=== PATIENT | male | born 1975 | race American Indian/Alaskan Native ===

== ENCOUNTER 2016-04-27 11:11 | Day surgery (SDC) | payer OTHER ==
--- NOTE | 2016-04-27 12:44 | Anesthesia Day of Surgery ---
Anesthesia Day of Surgery - Day of Surgery Patient Examined: Yes Patient H&P Reviewed: Yes Patient is NPO: Yes
--- NOTE | 2016-04-27 12:46 | Anesthesia Consultation ---
Anesthesia Consult and Med Hx Date of service: 04/27/16 - Airway Anesthetic Teeth Evaluation: Good ROM Head & Neck: Adequate Mental/Hyoid Distance: Adequate Mallampati Class: Class II Intubation Access Assessment: Probably Good - Pulmonary Exam CTA: Yes - Cardiac Exam Cardiac Exam: RRR - Pre-Operative Health Status ASA Pre-Surgery Classification: ASA2 Proposed Anesthetic Plan: MAC - Pre-Anesthesia Comment Pre-Anesthesia Comments: no surgery history - Pulmonary Hx Smoking: No Hx Asthma: No Hx Sleep Apnea: No - Cardiovascular System Hx Hypertension: No Hx Heart Attack/AMI: No - Central Nervous System Hx Seizures: No CVA: No Hx Psychiatric Problems: No - Gastrointestinal Hx Gastroesophageal Reflux Disease: No - Endocrine Hx Renal Disease: No Hx Liver Disease: No Hx Insulin Dependent Diabetes: No - Hematic Hx Sickle Cell Disease: No - Other Systems Hx Cancer: No - Additional Comments Anesthesia Medical History Comments: Pt denies any familial anesthesia complications
[2016-04-27] MEDS ORDERED: DIPRIVAN 10 MG/ML IV ONE ×3 (12:50)
[2016-04-27] MEDS ORDERED: NACL 0.9% 1000 ML 1,000 ML IV SCH (13:00)
[2016-04-27] MEDS ORDERED: XYLOCAINE MPF 2% ONE (13:00)
[2016-04-27 14:12] VITALS: BP 119/75
--- NOTE | 2016-04-27 14:59 | Operative Report ---
Operative Report Operative Report: Date of procedure: 04/27/2016 Procedure: Colonoscopy with hot biopsy polypectomy and ablation Attending physician: Liam Bailey MD Residue Furnace Operator: Liam Bailey MD Indication: Patient is a 40-year-old male who presented with a history of anorectal discomfort rectal bleeding altered bowel habits bloating and rectal pain. A colonoscopy is done to assess patient regarding the cause of his symptoms so that treatment may be directed based the findings. Consent: Informed consent was obtained after advising the patient and family regarding nature of this procedure, its indications, potential benefits as well as possible complications including but not limited to bleeding perforation and adverse reaction to medication, infection as well as other cardiopulmonary complications. An informed written and verbal consent was then obtained after due opportunity was provided for questions and answers. Monitoring: Patient was monitored continuously with pulse oximetry and electrocardiographic recordings as well as blood pressure recordings. Vital signs remained stable throughout this procedure with no untoward events. Preoperative assessment: Patient was assessed immediately prior to this procedure for capacity to tolerate monitored anesthesia care and moderate sedation as well as general anesthesia. Patient's ASA classification is 2, Mallampati class is 2, Hyomental distance is 3. Instrument: GoodDatan video colonoscope Medications: Propofol given intravenously in divided doses. For details please refer to anesthesia records. Description of procedure: Patient was placed in the left lateral decubitus position after achieving sedation, a digital rectal examination was performed following which the colonoscope was introduced into the anal verge and advanced to the cecum which was identified by the cecal valve, the appendiceal orifice, as well as by the cecal strap and direct transillumination. The colonoscope was subsequently withdrawn with careful inspection of all mucosal surfaces. Patient tolerated this procedure well and was subsequently taken to the recovery room. The following findings were noted. Findings: There was some thick liquid stool in sections of the colon which was irrigated. There was there were a few diverticula seen in the sigmoid colon. There was a diminutive flat polyp in the rectum which was ablated. There were 2 sessile polyps in the sigmoid colon one was about 3-4 mm the other one was about 5-6 mm. Would polyps were removed by hot biopsy polypectomy and retrieved. Patient had indurated erythematous internal hemorrhoids noted on the retroflex examination at the anal verge. These however did not appear to be significantly engorged. Hemorrhoidal band ligation was therefore not done. Impression: Diminutive sigmoid colon polyp status post hot biopsy polypectomy Diminutive rectal polyp status post ablation Inflamed internal hemorrhoids. Plan: Follow pathology report High-fiber diet Daily sitz baths Anusol HC suppositories per rectum daily at bedtime 5% lidocaine ointment rectum every 3-6 hours as needed Patient will be followed up as an outpatient.
--- NOTE | 2016-04-27 15:00 | Discharge Summary ---
Short Stay Discharge Plan Activity: advance as tolerated Weight Bearing Status: Weight Bear as Tolerated Diet: regular Additional Instructions: Post Sedation D/C Instructions When you return home you may resume your regular diet unless otherwise directed. -Go directly home from the hospital and rest quietly. You may resume normal activities tomorrow. -Do NOT drive, return to work, operate any machinery or make any important personal or business decisions today. -Do NOT drink any alcohol or take nerve or sleeping drugs. They add to the effects of the medicine still present in your body. Follow up with: KANDIS ALVARADO MD [Primary Care Provider] - 7 Days
--- NOTE | 2016-04-27 15:15 | Post Anesthesia Evaluation ---
- Post Anesthesia Evaluation Patient Participated: Yes Airway Patent: Yes Stable Respiratory Function: Yes Nausea/Vomiting: No Temp > 96.8F: Yes Pain Manageable: Yes Adequeate Hydration: Yes Anesthesia Complications: No Block Receding Appropriately: Not Applicable Patient on Ventilator: No
== END 2016-04-27 11:12 | disposition home or self-care (01) ==
LOC: GIO 11:11
PROVIDERS: ATTEND Internal Medicine Gastroenterology
DX: K62.1 Rectal polyp (principal); K63.5 Polyp of colon; K64.8 Other hemorrhoids; K57.30 Diverticulosis of large intestine without perforation or abscess without bleeding; F17.210 Nicotine dependence, cigarettes, uncomplicated; F12.90 Cannabis use, unspecified, uncomplicated; Z72.89 Other problems related to lifestyle; Z83.3 Family history of diabetes mellitus; Z83.79 Family history of other diseases of the digestive system
CPT/HCPCS: 45384; 45388; 88305; J2704; J7030